=== PATIENT | female | born 1970 | race Caucasian/White ===

== ENCOUNTER 2021-07-30 09:03 | Outpatient (CLI) | payer OTHER | END 2021-07-30 09:04 | disposition home or self-care (01) | LOC: CSHMAMMO 09:03 | PROVIDERS: ATTEND Obstetrics & Gynecology | DX: Z12.31 Encounter for screening mammogram for malignant neoplasm of breast (principal); Z80.3 Family history of malignant neoplasm of breast | CPT/HCPCS: 77063; 77067 ==

== ENCOUNTER 2022-09-07 11:34 | Outpatient (CLI) | payer BC | END 2022-09-07 11:35 | disposition home or self-care (01) | LOC: CSHMAMMO 11:34 | PROVIDERS: ATTEND Obstetrics & Gynecology | DX: Z12.31 Encounter for screening mammogram for malignant neoplasm of breast (principal); Z80.3 Family history of malignant neoplasm of breast | CPT/HCPCS: 77063; 77067 ==

== ENCOUNTER 2023-09-27 11:31 | Outpatient (CLI) | payer BC | END 2023-09-27 11:32 | disposition home or self-care (01) | LOC: CSHMAMMO 11:31 | PROVIDERS: ATTEND Obstetrics & Gynecology | DX: Z12.31 Encounter for screening mammogram for malignant neoplasm of breast (principal); Z80.3 Family history of malignant neoplasm of breast | CPT/HCPCS: 77063; 77067 ==

== ENCOUNTER 2025-06-04 07:22 | Outpatient (CLI) | payer BC | END 2025-06-04 07:23 | disposition home or self-care (01) | LOC: CSHULT 07:22 | PROVIDERS: ATTEND Student in an Organized Health Care Education/Training Program | DX: R79.89 Other specified abnormal findings of blood chemistry (principal); Z83.49 Family history of other endocrine, nutritional and metabolic diseases | CPT/HCPCS: 76705 ==